=== PATIENT | female | born 1955 | race Caucasian/White ===

== ENCOUNTER 2017-12-26 19:30 | Inpatient (IN) ==
[2017-12-26 20:13] LABS: Baso # (Auto) 0.1 th/mm3 (0.0-0.2); Eos # (Auto) 0.1 th/mm3 (0.0-0.4); Eos % (Auto) 1.3 % (0.0-4.0); Hematocrit 41.3 % (35.0-46.0); Lymph # (Auto) 2.4 th/mm3 (1.0-4.8); Lymph % (Auto) 24.8 % (9.0-44.0); Mean Corpuscular HGB Conc 33.8 % (32.0-36.0); Mean Corpuscular Hemoglobin 30.3 pg (27.0-34.0); Mean Corpuscular Volume 89.7 fL (80.0-100.0); Mean Platelet Volume 8.1 fL (7.0-11.0); Mono # (Auto) 1.1 th/mm3 (0.0-0.9); Mono % (Auto) 11.5 % (0.0-8.0); Neut # (Auto) 5.9 th/mm3 (1.8-7.7); Neut % (Auto) 61.4 % (16.0-70.0); Platelet Count 253 th/mm3 (150-450); White Blood Count 9.5 th/mm3 (4.0-11.0)
[2017-12-26 20:26] LABS: Albumin 3.5 g/dL (3.4-5.0); Anion Gap 12 meq/L (5-15); Aspartate Aminotransferase 22 U/L (15-37); Blood Urea Nitrogen 12 mg/dL (7-18); Calcium 8.8 mg/dL (8.5-10.1); Carbon Dioxide 21.8 meq/L (21.0-32.0); Chloride 105 meq/L (98-107); Glomerular Filtration Rate 65 mL/min (>89); Glucose,Random 112 mg/dL (74-106); Potassium 3.5 meq/L (3.5-5.1); Sodium 139 meq/L (136-145)
[2017-12-26 20:27] LABS: Alanine Aminotransferase 39 U/L (10-53)
[2017-12-26 20:31] LABS: Alkaline Phosphatase 81 U/L (45-117)
--- NOTE | 2017-12-26 20:40 | XR ---
EXAM DATE: 12/26/2017 7:56 PM EDT AGE/SEX: 62 years / Female INDICATIONS: Shortness of breath. CLINICAL DATA: This is the patient's initial encounter. Patient reports that signs and symptoms have been present for 1 day and indicates a pain score of 0/10. MEDICAL/SURGICAL HISTORY: Chronic obstructive pulmonary disease. None. COMPARISON: . FINDINGS: A single AP view of the chest demonstrates the lungs to be symmetrically aerated without evidence of mass, infiltrate or effusion. Minimal basilar atelectasis. The cardiomediastinal contours are unremar kable. Osseous structures are intact. CONCLUSION: Minimal basilar atelectasis. No effusion or pneumothorax. Electronically signed by: Arden Tapia MD 12/26/2017 8:39 PM EDT
--- NOTE | 2017-12-26 20:46 | ED ---
HPI General Chief Complaint: Shortness of Breath/Dyspnea Stated Complaint: SOB/COPD Time Seen by Provider: 12/26/17 19:42 Source: patient and family (Twin sister ) Mode of arrival: ambulatory Limitations: no limitations History of Present Illness 62-year-old female came to the emergency room with her twin sister and her with history of shortness of breath. Initially it was extremely difficult to get any history from the patient. She appeared to be anxious, moderate distress and breathing heavy. Her sister was giving most of the history. There was a lot of anxiety in the room and difficult to get a focused history. I went back after half an hour to talk to the patient and at this time she seemed more calm and told me that she has been having progressive worsening of breathing for past 6 weeks. She is from [facility] and came here 1 week ago. Back home she had seen her primary care physician who had addressed her concern regarding shortness of breath and given her inhaler as well as steroids. Patient says the inhalers made her breathing condition worse. The steroids did seem to help which was a 5-day course of prednisone. Once the steroid was stopped her symptoms started back again. She had a CAT scan of her chest done without contrast, chest x-ray which were all within normal limits. Patient used to be a smoker and quit 10 months ago. She denies of any chest pain, syncopal episode, fever or cough. Upon arrival patient had oxygen saturation of 93-94% on room air. The sister says that she has a pulse ox machine at home and on occasions her oxygen saturation would go down to the mid to high 80s. Patient and her sister seem extremely concerned about this at this point. To them it seems like her symptoms worsen when she is up and walking. Complaint: Reports shortness of breath Onset (ago): week(s) Severity: severe Related Data Home Medications Medication Instructions Recorded Confirmed atorvastatin 20 mg PO DAILY 12/26/17 12/26/17 bupropion HCl [Wellbutrin SR] 100 mg PO DAILY 12/26/17 12/26/17 levothyroxine 50 mcg PO DAILY 12/26/17 12/26/17 sertraline [Zoloft] 100 mg PO DAILY 12/26/17 12/26/17 Previous Rx's Medication Instructions Recorded azithromycin 250 mg PO DAILY #2 tab 12/27/17 budesonide-formoterol [Symbicort] 2 puff INH BID #1 g 12/27/17 lorazepam 0.5 mg PO Q8H #10 tab 12/30/17 prednisone [Deltasone] 20 mg PO BID #10 tab 12/30/17 Allergies Allergy/AdvReac Type Severity Reaction Status Date / Time No Known Allergies Allergy Unverified 12/26/17 19:56 Review of Systems ROS: all other systems reviewed are negative Respiratory Reports dyspnea [facility] Medical History Medical History COPD (chronic obstructive pulmonary disease) (Acute) Depression (Acute) H/O: hysterectomy (Acute) High cholesterol (Acute) Hypothyroid (Acute) Social History Social History Substance History: No History of Abuse Second Hand Smoke Exposure: No Smoking Status: Former smoker Tobacco Type: Cigarettes How Often Do You Have a Drink Containing Alcohol: Monthly or less Recent Travel in [facility] within the Last 8 Weeks: No Recent Out of Country Travel within the Last 8 Weeks: No Immunization History Tetanus Immunization: <5 Years Tetanus Immunization Year if Known: 2017 Exam Narrative Exam Narrative: GENERAL: Awake, alert, extremely anxious, obese SKIN: Focused skin assessment warm/dry. HEAD: Atraumatic. Normocephalic. EYES: Pupils equal and round. No scleral icterus. No injection or drainage. ENT: No nasal bleeding or discharge. Mucous membranes pink and moist. NECK: Trachea midline. No JVD. CARDIOVASCULAR: Regular rate and rhythm. No murmur appreciated. RESPIRATORY: No accessory muscle use. Clear to auscultation. Breath sounds equal bilaterally. Hyperventilation GASTROINTESTINAL: Abdomen soft, non-tender, nondistended. Hepatic and splenic margins not palpable. MUSCULOSKELETAL: No obvious deformities. No clubbing. No cyanosis. No edema. NEUROLOGICAL: Awake and alert. No obvious cranial nerve deficits. Motor grossly within normal limits. Normal speech. PSYCHIATRIC: Appropriate mood and affect; insight and judgment normal. Course Initial Documented Vital Signs Pulse Rate 101 H 12/26/17 19:33 Respiratory Rate 28 H 12/26/17 19:33 Blood Pressure 136/73 12/26/17 19:33 Pulse Oximetry 95 12/26/17 19:33 Last Documented Vital Signs Temperature 98.0 F 12/30/17 12:00 Pulse Rate 85 12/30/17 12:00 Respiratory Rate 18 12/30/17 12:00 Blood Pressure 111/59 L 12/30/17 12:00 Pulse Oximetry 91 L 12/30/17 12:00 Critical Care Time Critical Care Time: Yes Total Critical Care Time: 30 Attestation: Aggregate critical care time was 30 minutes. Time to perform other separately billable procedures was not included in the critical care time. My time did not include minutes spent treating any other patients simultaneously or on activities that did not directly contribute to the patient's treatment. The services I provided to this patient were to treat and/or prevent clinically significant deterioration that could result in: Respiratory distress, hypoxia I provided critical care services requiring my management, as noted below: Chart data review, documentation time, medication orders and management, vital sign assessments/reviewing monitor data, ordering and reviewing lab tests, ordering and interpreting/reviewing x-rays and diagnostic studies, care of the patient and discussion of the patient with the admitting physicians. Medical Decision Making MDM Narrative Medical decision making narrative: 9:24 PM I was told by the nurse earlier that patient went up to go to the bathroom and when she came back she was short of breath again and her pulse ox read 88% on room air. I ordered for a blood gas which was done on 2 L of oxygen via nasal cannula which confirms this result. I have ordered albuterol nebulizer and a DuoNeb for this patient. Blood test results otherwise are within normal limit. I have ordered a CT pulmonary angiogram to rule out PE given the hypoxia. 11:[address] pulmonary angiogram report just came back and shows pulmonary fibrosis but no PE. Patient says that when she had the CT scan done 4 weeks ago she was told that it was normal. The fibrosis would explain the crackles heard as well as her hypoxia and dyspnea on exertion. I explained to the patient that at this point I am not sure what is causing her fibrosis. Ambulatory oxygen saturation was done on room air and patient became tachypneic and hypoxic. Oxygen saturation was down to 87%. I have ordered IV Solu-Medrol as well as IV Zithromax for the patient. Blood culture has been ordered. I explained to her that with hypoxia to this extent it would be unsafe for her to be discharged. Patient understands. Awaiting for the hospitalist to call back. Medical Screen Exam Complete: Yes Emergency Medical Condition: Yes Lab Data Result diagrams: 12/27/17 05:53 12/28/17 08:15 Lab Results 12/26/17 12/26/17 12/26/17 Range/Units 20:00 20:00 20:00 WBC 9.5 (4.0-11.0) th/mm3 RBC 4.60 (4.00-5.30) mil/mm3 Hgb 14.0 (11.6-15.3) gm/dL Hct 41.3 (35.0-46.0) % MCV 89.7 (80.0-100.0) fL MCH 30.3 (27.0-34.0) pg MCHC 33.8 (32.0-36.0) % RDW 13.0 (11.6-17.2) % Plt Count 253 (150-450) th/mm3 MPV 8.1 (7.0-11.0) fL Neut % (Auto) 61.4 (16.0-70.0) % Lymph % (Auto) 24.8 (9.0-44.0) % Bullitt % (Auto) 11.5 H (0.0-8.0) % Eos % (Auto) 1.3 (0.0-4.0) % Baso % (Auto) 1.0 (0.0-2.0) % Neut # (Auto) 5.9 (1.8-7.7) th/mm3 Lymph # (Auto) 2.4 (1.0-4.8) th/mm3 Bullitt # (Auto) 1.1 H (0.0-0.9) th/mm3 Eos # (Auto) 0.1 (0.0-0.4) th/mm3 Baso # (Auto) 0.1 (0.0-0.2) th/mm3 WBC Differential . Differential Comment Auto diff final D-Dimer Quant (PE/DVT) 0.46 (0.00-0.50) mg/L FEU Puncture Site Patient Temperature O2 Saturation (90-100) % ABG pH (7.380-7.420) ABG pCO2 (38-42) mmHg ABG pO2 (61-120) mmHg ABG HCO3 (22-26) mmol/L ABG O2 Content (12.0-20.0) Vol % ABG Base Excess (-2-2) mmol/L ABG Methemoglobin (0-2) % Alberto Test Hemoglobin (12.0-16.0) G/DL Carboxyhemoglobin (0-4) % O2 Delivery Device Liter Flow L/M Critical Value Sodium 139 (136-145) meq/L Potassium 3.5 (3.5-5.1) meq/L Chloride 105 (98-107) meq/L Carbon Dioxide 21.8 (21.0-32.0) meq/L Anion Gap 12 (5-15) meq/L BUN 12 (7-18) mg/dL Creatinine 0.89 (0.50-1.00) mg/dL Estimated GFR 65 L (>89) mL/min Random Glucose 112 H (74-106) mg/dL Calcium 8.8 (8.5-10.1) mg/dL Magnesium (1.5-2.5) mg/dL Total Bilirubin 0.2 (0.2-1.0) mg/dL AST 22 (15-37) U/L ALT 39 (10-53) U/L Alkaline Phosphatase 81 (45-117) U/L Troponin I Less than 0.02 L (0.02-0.05) ng/mL B-Natriuretic Peptide (0-100) pg/mL Total Protein 8.0 (6.4-8.2) g/dL Albumin 3.5 (3.4-5.0) g/dL 12/26/17 12/26/17 12/26/17 Range/Units 20:00 20:00 20:38 WBC (4.0-11.0) th/mm3 RBC (4.00-5.30) mil/mm3 Hgb (11.6-15.3) gm/dL Hct (35.0-46.0) % MCV (80.0-100.0) fL MCH (27.0-34.0) pg MCHC (32.0-36.0) % RDW (11.6-17.2) % Plt Count (150-450) th/mm3 MPV (7.0-11.0) fL Neut % (Auto) (16.0-70.0) % Lymph % (Auto) (9.0-44.0) % Bullitt % (Auto) (0.0-8.0) % Eos % (Auto) (0.0-4.0) % Baso % (Auto) (0.0-2.0) % Neut # (Auto) (1.8-7.7) th/mm3 Lymph # (Auto) (1.0-4.8) th/mm3 Bullitt # (Auto) (0.0-0.9) th/mm3 Eos # (Auto) (0.0-0.4) th/mm3 Baso # (Auto) (0.0-0.2) th/mm3 WBC Differential Differential Comment D-Dimer Quant (PE/DVT) (0.00-0.50) mg/L FEU Puncture Site Right radial Patient Temperature 98.6 O2 Saturation 89 L* (90-100) % ABG pH 7.41 (7.380-7.420) ABG pCO2 36 L (38-42) mmHg ABG pO2 64 (61-120) mmHg ABG HCO3 23 (22-26) mmol/L ABG O2 Content 16.7 (12.0-20.0) Vol % ABG Base Excess -1.3 (-2-2) mmol/L ABG Methemoglobin 0.7 (0-2) % Alberto Test Present Hemoglobin 13.4 (12.0-16.0) G/DL Carboxyhemoglobin 1.3 (0-4) % O2 Delivery Device Nasal cannula Liter Flow 2.00 L/M Critical Value Yes Sodium (136-145) meq/L Potassium (3.5-5.1) meq/L Chloride (98-107) meq/L Carbon Dioxide (21.0-32.0) meq/L Anion Gap (5-15) meq/L BUN (7-18) mg/dL Creatinine (0.50-1.00) mg/dL Estimated GFR (>89) mL/min Random Glucose (74-106) mg/dL Calcium (8.5-10.1) mg/dL Magnesium 2.1 (1.5-2.5) mg/dL Total Bilirubin (0.2-1.0) mg/dL AST (15-37) U/L ALT (10-53) U/L Alkaline Phosphatase (45-117) U/L Troponin I (0.02-0.05) ng/mL B-Natriuretic Peptide 9 (0-100) pg/mL Total Protein (6.4-8.2) g/dL Albumin (3.4-5.0) g/dL 12/27/17 12/27/17 12/28/17 Range/Units 05:53 05:53 08:15 WBC 6.1 (4.0-11.0) th/mm3 RBC 4.58 (4.00-5.30) mil/mm3 Hgb 13.8 (11.6-15.3) gm/dL Hct 41.4 (35.0-46.0) % MCV 90.4 (80.0-100.0) fL MCH 30.0 (27.0-34.0) pg MCHC 33.2 (32.0-36.0) % RDW 12.7 (11.6-17.2) % Plt Count 228 (150-450) th/mm3 MPV 8.1 (7.0-11.0) fL Neut % (Auto) 88.0 H (16.0-70.0) % Lymph % (Auto) 10.2 (9.0-44.0) % Bullitt % (Auto) 1.2 (0.0-8.0) % Eos % (Auto) 0.0 (0.0-4.0) % Baso % (Auto) 0.6 (0.0-2.0) % Neut # (Auto) 5.3 (1.8-7.7) th/mm3 Lymph # (Auto) 0.6 L (1.0-4.8) th/mm3 Bullitt # (Auto) 0.1 (0.0-0.9) th/mm3 Eos # (Auto) 0.0 (0.0-0.4) th/mm3 Baso # (Auto) 0.0 (0.0-0.2) th/mm3 WBC Differential . Differential Comment Auto diff final D-Dimer Quant (PE/DVT) (0.00-0.50) mg/L FEU Puncture Site Patient Temperature O2 Saturation (90-100) % ABG pH (7.380-7.420) ABG pCO2 (38-42) mmHg ABG pO2 (61-120) mmHg ABG HCO3 (22-26) mmol/L ABG O2 Content (12.0-20.0) Vol % ABG Base Excess (-2-2) mmol/L ABG Methemoglobin (0-2) % Alberto Test Hemoglobin (12.0-16.0) G/DL Carboxyhemoglobin (0-4) % O2 Delivery Device Liter Flow L/M Critical Value Sodium 140 142 (136-145) meq/L Potassium 4.2 4.2 (3.5-5.1) meq/L Chloride 107 108 H (98-107) meq/L Carbon Dioxide 23.6 24.4 (21.0-32.0) meq/L Anion Gap 9 10 (5-15) meq/L BUN 12 18 (7-18) mg/dL Creatinine 1.06 H 0.88 (0.50-1.00) mg/dL Estimated GFR 53 L 66 L (>89) mL/min Random Glucose 175 H 119 H (74-106) mg/dL Calcium 9.0 9.1 (8.5-10.1) mg/dL Magnesium 2.4 (1.5-2.5) mg/dL Total Bilirubin 0.2 (0.2-1.0) mg/dL AST 21 (15-37) U/L ALT 39 (10-53) U/L Alkaline Phosphatase 85 (45-117) U/L Troponin I (0.02-0.05) ng/mL B-Natriuretic Peptide (0-100) pg/mL Total Protein 7.9 (6.4-8.2) g/dL Albumin 3.5 (3.4-5.0) g/dL Imaging Data Radiologist's impression: Chest X-Ray 12/26/17 19:56 CONCLUSION: Minimal basilar atelectasis. No effusion or pneumothorax. Chest CTA 12/26/17 20:55 CONCLUSION: 1. Basilar and peripheral predominant pulmonary fibrosis with honeycombing and reticular abnormality in a pattern characteristic of usual interstitial pneumonitis. 2. Negative for pulmonary embolus. ECG Data Interpretation: Twelve-lead EKG was reviewed by me. Normal sinus rhythm, normal axis, nonspecific ST-T wave changes. Heart rate of 95 bpm. Discharge Plan Discharge Disposition Patient Disposition: 30 Still Patient Discharge Condition Condition: Fair Discharge Order Discharge Orders: AMA Discharge (Routine); Ordered 12/30/17 Ordered By: Shahabuddi Ahmed Discharge Details Anticipated Discharge Date: 12/30/17 Physicians Team ED Provider: Sienna Gorman Primary Care Provider: UNKNOWN, Attending Provider: Sigrid Peres Other Providers: Brielle Hannah Status ED Status: Left Department Discharge Information Discharge Date/Time: 12/27/17 00:15
[2017-12-26 20:48] LABS: ABG Base Excess -1.3 mmol/L (-2-2); ABG PCO2 36 mmHg (38-42); ABG PO2 64 mmHg (61-120)
--- NOTE | 2017-12-26 22:26 | CT ---
EXAM DATE: 12/26/2017 9:11 PM EDT AGE/SEX: 62 years / Female INDICATIONS: Shortness of breath. CLINICAL DATA: This is the patient's initial encounter. Patient reports that signs and symptoms have been present for 1 week and indicates a pain score of 0/10. MEDICAL/SURGICAL HISTORY: Chronic obstructive pulmonary disease. Hysterectomy. RADIATION DOSE: 21.57 CTDI (mGy) COMPARISON: No prior exams available for comparison. TECHNIQUE: Volumetric scanning was performed using a multi-row detector CT scanner during bolus infu renae of 70 ml Omnipaque 350 (iohexol) nonionic water-soluble contrast as a single exam dose. The augustine a was post processed with a variety of visualization algorithms including full volume maximum intensi ty projection and sliding thin slab reformation. Using automated exposure control and adjustment of the mA and/or kV according to patient size, radiation dose was kept as low as reasonably achievable t o obtain optimal diagnostic quality images. DICOM format image data is available electronically for review and comparison. FINDINGS: No filling defects to suggest pulmonary embolic disease. There is mild emphysema. There is bilateral mostly basilar and peripheral fibrosis with some honeycombing and traction bronchiectasis characteris tic of a usual interstitial pneumonitis pattern. There is some scattered groundglass opacity. Mildly enlarged mediastinal lymph nodes are present. No acute findings in the upper abdomen. Previous cholecystectomy. CONCLUSION: 1. Basilar and peripheral predominant pulmonary fibrosis with honeycombing and reticular abnormality in a pattern characteristic of usual interstitial pneumonitis. 2. Negative for pulmonary embolus. Electronically signed by: Arden Tapia MD 12/26/2017 10:24 PM EDT
[2017-12-26] MEDS ORDERED: Acetaminophen 325 MG Tablet PO ONE (22:49)
[2017-12-26] MEDS ORDERED: MethylPREDNISolone Sod Succinate Inj 125 MG/2 ML Vial IV.PUSH ONE (23:00)
[2017-12-26] MEDS ORDERED: Azithromycin Inj 500 MG in Sodium Chlor 0.9% Inj 250 ML IV.SIG ONE (23:00)
[2017-12-26] MEDS ORDERED: Bisacodyl 10 MG Supp RECTAL PRN (23:31)
--- NOTE | 2017-12-26 23:33 | P.HPIM ---
History of Present Illness Primary Care Physician: UNKNOWN History of Present Illness: This is a 62-year-old female with a PMH of Anxiety, Depression, Hypothyroidism, Hyperlipidemia and COPD who presented to the ER with significant SOB. Pt here visiting from [place], [facility] she quit smoking approx 10 months ago and was doing fine until few weeks ago when she began to have significant SOB, especially w/ exertion. Was seen by PCP back home, started on MDI and Steroids w/ some transient improvement. States she had upcoming appt w/ Professor Of Social Work when she returns home. Had CT Chest which patient reports was normal. States she has been in [facility] for 1wk and has had worsening symptoms since then. Denies fever or chills. +sore throat, non-productive cough and headache. On arrival, BP 136/73, HR 101, O2 sat 95% on RA. While in the ER, patient had episode of hypoxia w/ O2 sat 87% on RA, significant SOB w/ ambulation. S/p Solu -Medrol and DuoNeb. CXR w/ no acute findings. CTA Chest w/ pulmonary fibrosis with honeycombing and reticular abnormality characteristic of interstitial pneumonitis, negative for PE. - Diagnosis (1) COPD (chronic obstructive pulmonary disease) (2) Hypoxia (3) Anxiety Inpatient Certification: I certify that the inpatient services were ordered in accordance with Medicare regulations governing the order. This includes certification that hospital inpatient services are reasonable and necessary and in the case of services not specified as inpatient-only under 42 CFR 419.22(n), that they are appropriately provided as inpatient services in accordance to with the 2-midnight benchmark under 43 CFR 412.3(e) Estimated Total Length of Stay (Days): 2 Plans for Post Hospital Care: Not yet determined Review of Systems PAST FAMILY HISTORY: Reviewed. No h/o DM or CAD All other systems reviewed negative except as stated in HPI PMFSH - History History Provided By: Patient, Family Member - Medical History Medical History: Medical History (Last Reviewed 12/26/17 @ 21:24 by Sienna Gorman MD) COPD (chronic obstructive pulmonary disease) Depression H/O: hysterectomy High cholesterol Hypothyroid - Tobacco History Tobacco Use In Past 30 Days: No Smoking Status: Former smoker - Alcohol History How Often Do You Have a Drink Containing Alcohol: Monthly or less - Substance Use History Substance History: No History of Abuse - Travel History Recent Travel in the [place] Within the Last 8 Weeks: No Recent Travel Out of the Country Within the Last 8 Weeks: No - Immunization History Tetanus Immunization: <5 Years Tetanus Immunization Year if Known: 2016 Medications and Allergies Active Medications: Active Medications Azithromycin 500 mg/ Sodium (Chloride) 250 mls @ 250 mls/hr IV.SIG ONCE ONE Stop: 12/26/17 23:59 Last Admin: 12/26/17 23:17 Dose: 250 mls/hr Allergies Allergy/AdvReac Type Severity Reaction Status Date / Time No Known Allergies Allergy Unverified 12/26/17 19:56 Home Medications Medication Instructions Recorded Confirmed Type atorvastatin 20 mg PO DAILY 12/26/17 12/26/17 History bupropion HCl [Wellbutrin SR] 100 mg PO DAILY 12/26/17 12/26/17 History levothyroxine 50 mcg PO DAILY 12/26/17 12/26/17 History sertraline [Zoloft] 100 mg PO DAILY 12/26/17 12/26/17 History Exam Vital signs: Vital Signs 12/26/17 19:33 12/26/17 19:50 12/26/17 19:59 Pulse Rate 101 H 85 84 Respiratory Rate 28 H 24 Blood Pressure 136/73 159/71 H Pulse Oximetry 95 96 96 12/26/17 20:30 12/26/17 20:31 12/26/17 20:56 Pulse Rate 84 Respiratory Rate 24 24 Blood Pressure Pulse Oximetry 88 L 94 L 12/26/17 21:00 12/26/17 22:00 12/26/17 22:34 Pulse Rate 84 91 H 89 Respiratory Rate 24 16 16 Blood Pressure 136/64 93/54 L 105/65 Pulse Oximetry 2 L 95 12/26/17 22:57 12/26/17 22:58 12/26/17 23:00 Pulse Rate 79 Respiratory Rate 26 H 22 Blood Pressure 110/67 Pulse Oximetry 87 L 97 96 Intake & Output 12/26/17 12/26/17 12/27/17 06:59 18:59 06:59 Weight 90.718 kg Narrative: PE: GENERAL: Middle-aged white female in no acute distress, however anxious, fidgety SKIN: Focused skin assessment warm and dry. HEENT: PERRLA, EOMI. No scleral icterus or conjunctival pallor. No lid lag or facial droop. CARDIOVASCULAR: Regular rate and rhythm. No obvious murmurs to auscultation. No chest tenderness to palpation. RESPIRATORY: No obvious rhonchi, occasional wheezing. Clear to auscultation. Breath sounds equal bilaterally. GASTROINTESTINAL: Abdomen soft, non-tender, nondistended. BS normal. MUSCULOSKELETAL: Extremities without clubbing, cyanosis, or edema. No obvious deformities. NEUROLOGICAL: Awake, alert and oriented x4. No focal neurologic deficits. Moving both upper and lower extremities spontaneously. PSYCHIATRIC: Appropriate mood and affect. Insight and judgment normal. Results - Labs CBC & Chem 7: 12/26/17 20:00 12/26/17 20:00 Labs: Short CBC 12/26/17 Range/Units 20:00 WBC 9.5 (4.0-11.0) th/mm3 Hgb 14.0 (11.6-15.3) gm/dL Hct 41.3 (35.0-46.0) % Plt Count 253 (150-450) th/mm3 BMP 12/26/17 20:00 Sodium 139 Potassium 3.5 Chloride 105 Carbon Dioxide 21.8 BUN 12 Creatinine 0.89 Calcium 8.8 Cardiac Enzymes 12/26/17 Range/Units 20:00 Troponin I Less than 0.02 L (0.02-0.05) ng/mL Liver Function 12/26/17 Range/Units 20:00 Total Bilirubin 0.2 (0.2-1.0) mg/dL AST 22 (15-37) U/L ALT 39 (10-53) U/L Alkaline Phosphatase 81 (45-117) U/L Albumin 3.5 (3.4-5.0) g/dL - Imaging Impressions Chest X-Ray 12/26/17 19:56 CONCLUSION: Minimal basilar atelectasis. No effusion or pneumothorax. Chest CTA 12/26/17 20:55 CONCLUSION: 1. Basilar and peripheral predominant pulmonary fibrosis with honeycombing and reticular abnormality in a pattern characteristic of usual interstitial pneumonitis. 2. Negative for pulmonary embolus. Caprini VTE Risk Assessment Caprini VTE Risk Assessment: No/Low Risk (score <= 1) Caprini Risk Assessment Model: Point Value = 1 Point Value = 2 Point Value = 3 Point Value = 5 Age 41-60 Minor surgery BMI > 25 kg/m2 Swollen legs Varicose veins or History of unexplained or recurrent spontaneous Oral contraceptives or hormone replacement Sepsis (< 1 month) Serious lung disease, including pneumonia (< 1 month) Abnormal pulmonary function Acute myocardial infarction Congestive heart failure (< 1 month) History of inflammatory bowel disease Medical patient at bed rest Age 61-74 Arthroscopic surgery Major open surgery (> 45 min) Laparoscopic surgery (> 45 min) Malignancy Confined to bed (> 72 hours) Immobilizing plaster cast Central venous access Age >= 75 History of VTE Family history of VTE Factor V Leiden Prothrombin [id number] Lupus anticoagulant Anticardiolipin antibodies Elevated serum homocysteine Heparin-induced thrombocytopenia Other congenital or acquired thrombophilia Stroke (< 1 month) Elective arthroplasty Hip, pelvis, or leg fracture Acute spinal cord injury (< 1 month) Prophylaxis Regimen: Total Risk Factor Score Risk Level Prophylaxis Regimen 0-1 Low Early ambulation 2 Moderate Order ONE of the following: *Sequential Compression Device (SCD) *Heparin 5000 units SQ BID 3-4 Higher Order ONE of the following medications: *Heparin 5000 units SQ TID *Enoxaparin/Lovenox 40 mg SQ daily (WT < 150 kg, CrCl > 30 mL/min) *Enoxaparin/Lovenox 30 mg SQ daily (WT < 150 kg, CrCl > 10-29 mL/min) *Enoxaparin/Lovenox 30 mg SQ BID (WT < 150 kg, CrCl > 30 mL/min) AND/OR *Sequential Compression Device (SCD) 5 or more Highest Order ONE of the following medications: *Heparin 5000 units SQ TID (Preferred with Epidurals) *Enoxaparin/Lovenox 40 mg SQ daily (WT < 150 kg, CrCl > 30 mL/min) *Enoxaparin/Lovenox 30 mg SQ daily (WT < 150 kg, CrCl > 10-29 mL/min) *Enoxaparin/Lovenox 30 mg SQ BID (WT < 150 kg, CrCl > 30 mL/min) AND *Sequential Compression Device (SCD) Assessment and Plan - Assessment (1) COPD (chronic obstructive pulmonary disease) Code(s): J44.9 - Chronic obstructive pulmonary disease, unspecified Status: Acute (2) Hypoxia Code(s): R09.02 - Hypoxemia Status: Acute (3) Anxiety Code(s): F41.9 - Anxiety disorder, unspecified Status: Acute - Plan A/P: 1. COPD: Chronic Respiratory Failure w/ Acute Exacerbation. Severe. Solu- Medrol, DuoNeb q4h and q2h prn, Symbicort, Mucinex. CXR w/ no acute findings, CTA Chest w/ interstitial pneumonitis, images reviewed. Symptoms ongoing for several weeks, consult Pulmonology for further recommendations/intervention. 2. Hypoxia: O2 sat 87% on RA, significant dyspnea w/ ambulation. Continue O2 , monitor oximetry, re-assess for Home O2 needs prior to discharge. 3. Anxiety: significant anxiety on exam, Ativan prn as needed. 4. DVT Prophylaxis: SCD/Teds 5. Social work for d/c planning as needed. 6. Case discussed w/ ER physician at length, labs/records/imaging reviewed by me.
[2017-12-27] MEDS ORDERED: Sodium Chloride 0.9% 2 ML Flush PRN IV.FLUSH (00:53)
[2017-12-27] MEDS: MethylPREDNISolone Sod Succinate Inj 40 MG/ML Vial IV.PUSH SCH ×4 (03:31→22:41)
--- NOTE | 2017-12-27 05:22 | P.PN ---
Subjective Interval history: F/U COPD with hypoxia. Improving shortness of breath but still with significant dyspnea on exertion on nasal cannula. Productive cough with brownish phlegm Physical Exam Vital signs: Vital Signs 12/26/17 19:33 12/26/17 19:50 12/26/17 19:59 Temperature Pulse Rate 101 H 85 84 Respiratory Rate 28 H 24 Blood Pressure 136/73 159/71 H Pulse Oximetry 95 96 96 12/26/17 20:30 12/26/17 20:31 12/26/17 20:56 Temperature Pulse Rate 84 Respiratory Rate 24 24 Blood Pressure Pulse Oximetry 88 L 94 L 12/26/17 21:00 12/26/17 22:00 12/26/17 22:34 Temperature Pulse Rate 84 91 H 89 Respiratory Rate 24 16 16 Blood Pressure 136/64 93/54 L 105/65 Pulse Oximetry 2 L 95 12/26/17 22:57 12/26/17 22:58 12/26/17 23:00 Temperature Pulse Rate 79 Respiratory Rate 26 H 22 Blood Pressure 110/67 Pulse Oximetry 87 L 97 96 12/27/17 01:00 12/27/17 01:01 12/27/17 03:42 Temperature 98.1 F Pulse Rate 84 88 Respiratory Rate 15 19 Blood Pressure 100/62 Pulse Oximetry 96 Intake & Output 12/26/17 12/26/17 12/27/17 06:59 18:59 06:59 Intake Total 250 / 250 Balance 250 / 250 Weight 90.7 kg Intake: IV 250 / 250 Azithromycin Inj 500 MG In NS 250 / 250 Inj 250 ML @ 250 mls/hr IV.SIG ONCE ONE Rx#:[id number] Other: Date of Last Bowel Movement 12/26/17 Weight On Admission 90.7 kg Narrative: GENERAL: Middle-aged white female in no acute distress SKIN: Focused skin assessment warm and dry. CARDIOVASCULAR: Regular rate and rhythm. No obvious murmurs to auscultation. No chest tenderness to palpation. RESPIRATORY: No obvious rhonchi, occasional wheezing. Clear to auscultation. Breath sounds equal bilaterally. GASTROINTESTINAL: Abdomen soft, non-tender, nondistended. BS normal. MUSCULOSKELETAL: Extremities without clubbing, cyanosis, or edema. No obvious deformities. NEUROLOGICAL: Awake, alert and oriented x4. No focal neurologic deficits. Moving both upper and lower extremities spontaneously. Results - Labs CBC & Chem 7: 12/27/17 05:53 12/27/17 05:53 Laboratory Results - last 24 hr 12/26/17 12/26/17 12/26/17 20:00 20:00 20:00 WBC 9.5 RBC 4.60 Hgb 14.0 Hct 41.3 MCV 89.7 MCH 30.3 MCHC 33.8 RDW 13.0 Plt Count 253 MPV 8.1 Neut % (Auto) 61.4 Lymph % (Auto) 24.8 [place] % (Auto) 11.5 H Eos % (Auto) 1.3 Baso % (Auto) 1.0 Neut # (Auto) 5.9 Lymph # (Auto) 2.4 [place] # (Auto) 1.1 H Eos # (Auto) 0.1 Baso # (Auto) 0.1 WBC Differential . Differential Comment Auto diff final D-Dimer Quant (PE/DVT) 0.46 Puncture Site Patient Temperature O2 Saturation ABG pH ABG pCO2 ABG pO2 ABG HCO3 ABG O2 Content ABG Base Excess ABG Methemoglobin Alberto Test Hemoglobin Carboxyhemoglobin O2 Delivery Device Liter Flow Critical Value Sodium 139 Potassium 3.5 Chloride 105 Carbon Dioxide 21.8 Anion Gap 12 BUN 12 Creatinine 0.89 Estimated GFR 65 L Random Glucose 112 H Calcium 8.8 Magnesium Total Bilirubin 0.2 AST 22 ALT 39 Alkaline Phosphatase 81 Troponin I Less than 0.02 L B-Natriuretic Peptide Total Protein 8.0 Albumin 3.5 12/26/17 12/26/17 12/26/17 20:00 20:00 20:38 WBC RBC Hgb Hct MCV MCH MCHC RDW Plt Count MPV Neut % (Auto) Lymph % (Auto) [place] % (Auto) Eos % (Auto) Baso % (Auto) Neut # (Auto) Lymph # (Auto) [place] # (Auto) Eos # (Auto) Baso # (Auto) WBC Differential Differential Comment D-Dimer Quant (PE/DVT) Puncture Site Right radial Patient Temperature 98.6 O2 Saturation 89 L* ABG pH 7.41 ABG pCO2 36 L ABG pO2 64 ABG HCO3 23 ABG O2 Content 16.7 ABG Base Excess -1.3 ABG Methemoglobin 0.7 Alberto Test Present Hemoglobin 13.4 Carboxyhemoglobin 1.3 O2 Delivery Device Nasal cannula Liter Flow 2.00 Critical Value Yes Sodium Potassium Chloride Carbon Dioxide Anion Gap BUN Creatinine Estimated GFR Random Glucose Calcium Magnesium 2.1 Total Bilirubin AST ALT Alkaline Phosphatase Troponin I B-Natriuretic Peptide 9 Total Protein Albumin - Imaging Impressions Chest X-Ray 12/26/17 19:56 CONCLUSION: Minimal basilar atelectasis. No effusion or pneumothorax. Chest CTA 12/26/17 20:55 CONCLUSION: 1. Basilar and peripheral predominant pulmonary fibrosis with honeycombing and reticular abnormality in a pattern characteristic of usual interstitial pneumonitis. 2. Negative for pulmonary embolus. - Procedures none Assessment and Plan - Assessment (1) COPD (chronic obstructive pulmonary disease) Code(s): J44.9 - Chronic obstructive pulmonary disease, unspecified Status: Acute (2) Hypoxia Code(s): R09.02 - Hypoxemia Status: Acute (3) Anxiety Code(s): F41.9 - Anxiety disorder, unspecified Status: Acute - Plan 1. COPD w/ acute Exacerbation. Severe. Solu-Medrol, DuoNeb q4h and q2h prn, Symbicort, Mucinex. CXR w/ no acute findings, CTA Chest w/ interstitial pneumonitis, images reviewed. Symptoms ongoing for several weeks, consult Pulmonology for further recommendations/intervention. Add Zithromax 2. Hypoxia: O2 sat 87% on RA, significant dyspnea w/ ambulation. Continue O2 , monitor oximetry, re-assess for Home O2 needs prior to discharge. 3. Anxiety: significant anxiety on exam, Ativan prn as needed. 4. DVT Prophylaxis: SCD/Teds Discharge Planning: Per pulmo. O2 walk test
[2017-12-27 06:30] LABS: Baso % (Auto) 0.6 % (0.0-2.0); Hematocrit 41.4 % (35.0-46.0); Hemoglobin 13.8 gm/dL (11.6-15.3); Lymph # (Auto) 0.6 th/mm3 (1.0-4.8); Lymph % (Auto) 10.2 % (9.0-44.0); Mean Corpuscular HGB Conc 33.2 % (32.0-36.0); Mean Corpuscular Volume 90.4 fL (80.0-100.0); Mean Platelet Volume 8.1 fL (7.0-11.0); Mono # (Auto) 0.1 th/mm3 (0.0-0.9); Mono % (Auto) 1.2 % (0.0-8.0); Neut # (Auto) 5.3 th/mm3 (1.8-7.7); Platelet Count 228 th/mm3 (150-450); Red Blood Count 4.58 mil/mm3 (4.00-5.30); Red Cell Distribution Width 12.7 % (11.6-17.2); White Blood Count 6.1 th/mm3 (4.0-11.0)
[2017-12-27 07:00] LABS: Albumin 3.5 g/dL (3.4-5.0); Anion Gap 9 meq/L (5-15); Aspartate Aminotransferase 21 U/L (15-37); Blood Urea Nitrogen 12 mg/dL (7-18); Carbon Dioxide 23.6 meq/L (21.0-32.0); Chloride 107 meq/L (98-107); Glomerular Filtration Rate 53 mL/min (>89); Glucose,Random 175 mg/dL (74-106); Potassium 4.2 meq/L (3.5-5.1); Sodium 140 meq/L (136-145)
[2017-12-27 07:02] LABS: Alanine Aminotransferase 39 U/L (10-53)
[2017-12-27 07:04] LABS: Alkaline Phosphatase 85 U/L (45-117); Total Protein 7.9 g/dL (6.4-8.2)
[2017-12-27] MEDS: Senna/Docusate Sodium 8.6/50 MG Tablet PO SCH ×2 (08:39→22:41)
[2017-12-27] MEDS: guaiFENesin 600 MG ER Tablet PO SCH ×2 (08:39→22:40)
[2017-12-27] MEDS: Sodium Chloride 0.9% 2 ML Flush BID IV.FLUSH SCH ×2 (08:40→22:42)
[2017-12-27] MEDS: Budesonide-Formoterol 160/4.5 MCG 6 GM Inhaler INH SCH ×2 (09:40→22:42)
[2017-12-27] MEDS: Levothyroxine 50 MCG Tablet PO SCH (11:11)
[2017-12-27] MEDS: buPROPion 100 MG ER 12 HR Tablet PO SCH (11:12)
--- NOTE | 2017-12-27 15:44 | MB ---
cc: Brielle Hannah MD DATE: 12/27/2017 REASON FOR CONSULTATION: COPD in exacerbation. HISTORY OF PRESENT ILLNESS: Ms. Bentley is a 62-year-old female with a known history of COPD, who presents with increasing shortness of breath, cough with expectoration of small amount of whitish sputum. Denies history of fever or chills. No hemoptysis. No TB, no industrial exposure. The patient's oxygen saturation upon presentation is at 87%, presently at 98% on 2 liters oxygen nasal cannula. PAST MEDICAL HISTORY: COPD, hypothyroidism, hyperlipidemia, mood disorder namely anxiety and depression. FAMILY HISTORY: Noncontributory. SOCIAL HISTORY: Long smoking history, stopped 10 months ago. Does not drink any alcohol. No TB, no industrial exposure. FAMILY HISTORY: Noncontributory. REVIEW OF SYSTEMS: A 12-point review of systems as per HPI and past history, otherwise negative. PHYSICAL EXAMINATION: GENERAL: The patient is alert. VITAL SIGNS: Temperature 98.4, respirations 18, blood pressure 110/70, oxygen saturation 96% on 2 liters oxygen nasal cannula. HEENT: Unremarkable. Eyes without icterus. NECK: Without adenopathy, thyroid enlargement; central trachea. CHEST: Few scattered rhonchi bilaterally. CARDIAC: PMI distant. S1, S2 audible. No murmur. No rub. ABDOMEN: Lax, bowel sounds audible. EXTREMITIES: No clubbing, cyanosis or edema. SKIN: Normal. No lymphadenopathy. LABORATORY DATA: White count 9.5, hemoglobin 14, hematocrit 41, platelets 253,000. Sodium 139, potassium 3.5, BUN 12, creatinine 0.8. IMAGIN. Chest x-ray. Mild atelectatic change, essentially normal. 2. CT angiogram without evidence of pulmonary embolism and evidence of fibrotic change chronic bilaterally suggestive of underlying UIP. IMPRESSION: 1. Chronic obstructive pulmonary disease exacerbation. 2. Probable usual interstitial pneumonia. 3. Mood disorder. 4. Respiratory failure. PLAN: 1. Continue oxygen therapy, bronchodilator therapy. 2. The patient lives in [place] and copies of her CT scan should be given to her upon her return to present to her manager surgery. Further evaluation of underlying UIP would be appropriate. We will follow the patient's course along with you and, depending on progress, proceed further. MD Lina Mercado , 03:30 PM , 03:37 PM
--- NOTE | 2017-12-27 16:44 | ECG ---
Date Performed: 12/26/2017 Time Performed: 19:48:20 PTAGE: 62 years EKG: Sinus rhythm POSSIBLE RIGHT VENTRICULAR CONDUCTION DELAY BORDERLINE ECG NO PREVIOUS TRACING DOCTOR: Sandra Almanzar Interpretating Date/Time 12/27/2017 16:41:30
[2017-12-27] MEDS: Azithromycin 250 MG Tablet PO SCH (16:58)
[2017-12-27] MEDS: Acetaminophen 325 MG Tablet PO PRN (16:58)
[2017-12-27] MEDS: Sertraline 100 MG Tablet PO SCH (22:41)
[2017-12-28] MEDS: Levothyroxine 50 MCG Tablet PO SCH (05:19)
[2017-12-28] MEDS: MethylPREDNISolone Sod Succinate Inj 40 MG/ML Vial IV.PUSH SCH ×4 (05:19→21:21)
[2017-12-28] MEDS: Budesonide-Formoterol 160/4.5 MCG 6 GM Inhaler INH SCH ×2 (08:55→21:23)
[2017-12-28] MEDS: Acetaminophen 325 MG Tablet PO PRN (08:55)
[2017-12-28] MEDS: guaiFENesin 600 MG ER Tablet PO SCH ×2 (08:56→21:21)
[2017-12-28] MEDS: Sodium Chloride 0.9% 2 ML Flush BID IV.FLUSH SCH ×2 (08:56→21:23)
[2017-12-28] MEDS: buPROPion 100 MG ER 12 HR Tablet PO SCH (08:56)
[2017-12-28] MEDS: Senna/Docusate Sodium 8.6/50 MG Tablet PO SCH ×2 (08:56→21:21)
[2017-12-28] MEDS: Azithromycin 250 MG Tablet PO SCH (08:56)
[2017-12-28 09:37] LABS: Calcium 9.1 mg/dL (8.5-10.1); Carbon Dioxide 24.4 meq/L (21.0-32.0); Magnesium 2.4 mg/dL (1.5-2.5); Potassium 4.2 meq/L (3.5-5.1)
--- NOTE | 2017-12-28 10:50 | P.PN ---
Subjective Interval history: Patient with COPD and Hypoxia, 12/28: patient with diagnosis of COPD stable in her bedroom continue Oxygen through NC no distress at this time, no expiratory wheezing, robotics specialist following. No nausea , vomit or diarrhea. Physical Exam Vital signs: Vital Signs 12/27/17 12:00 12/27/17 12:35 12/27/17 15:56 Temperature 97.6 F Pulse Rate 93 H 93 H 101 H Respiratory Rate 20 19 20 Blood Pressure 130/70 Pulse Oximetry 92 L 12/27/17 16:00 12/27/17 17:28 12/27/17 20:00 Temperature 98.1 F 97.5 F L Pulse Rate 97 H 102 H Respiratory Rate 18 18 18 Blood Pressure 124/81 Pulse Oximetry 97 94 L 12/27/17 21:07 12/28/17 00:00 12/28/17 04:54 Temperature 97.4 F L 97.6 F Pulse Rate 104 H 95 H 95 H Respiratory Rate 17 18 18 Blood Pressure 127/71 111/67 Pulse Oximetry 97 92 L 92 L 12/28/17 08:00 12/28/17 08:21 Temperature 98.1 F Pulse Rate 85 79 Respiratory Rate 18 22 Blood Pressure 122/80 Pulse Oximetry 96 Intake & Output 12/27/17 12/28/17 12/28/17 18:59 06:59 18:59 Intake Total 740 / 740 960 / 960 Balance 740 / 740 960 / 960 Intake: Oral 740 / 740 960 / 960 Other: # Voids 2 2 Date of Last Bowel Movement 12/26/17 12/26/17 # Bowel Movements 0 0 Narrative: GENERAL: Middle-aged white female in no acute distress SKIN: Focused skin assessment warm and dry. CARDIOVASCULAR: Regular rate and rhythm. No obvious murmurs to auscultation. No chest tenderness to palpation. RESPIRATORY: No obvious rhonchi, No wheezing, no crackles. GASTROINTESTINAL: Abdomen soft, non-tender, nondistended. BS normal. MUSCULOSKELETAL: Extremities without clubbing, cyanosis, or edema. No obvious deformities. NEUROLOGICAL: Awake, alert and oriented x4. No focal neurologic deficits. Results - Labs CBC & Chem 7: 12/27/17 05:53 12/28/17 08:15 Laboratory Results - last 24 hr 12/28/17 08:15 Sodium 142 Potassium 4.2 Chloride 108 H Carbon Dioxide 24.4 Anion Gap 10 BUN 18 Creatinine 0.88 Estimated GFR 66 L Random Glucose 119 H Calcium 9.1 Magnesium 2.4 Microbiology 12/26/17 23:15 Blood - Peripheral Aerobic Blood Culture - Preliminary No growth in 1 day 12/26/17 23:15 Blood - Peripheral Anaerobic Blood Culture - Preliminary No growth in 1 day 12/26/17 23:20 Blood - Peripheral Aerobic Blood Culture - Preliminary No growth in 1 day 12/26/17 23:20 Blood - Peripheral Anaerobic Blood Culture - Preliminary No growth in 1 day - Imaging Chest X-Ray 12/26/17 19:56 CONCLUSION: Minimal basilar atelectasis. No effusion or pneumothorax. Chest CTA 12/26/17 20:55 CONCLUSION: 1. Basilar and peripheral predominant pulmonary fibrosis with honeycombing and reticular abnormality in a pattern characteristic of usual interstitial pneumonitis. 2. Negative for pulmonary embolus. - Procedures none Assessment and Plan - Assessment (1) COPD (chronic obstructive pulmonary disease) Code(s): J44.9 - Chronic obstructive pulmonary disease, unspecified Status: Acute (2) Hypoxia Code(s): R09.02 - Hypoxemia Status: Acute (3) Anxiety Code(s): F41.9 - Anxiety disorder, unspecified Status: Acute - Plan 1. COPD w/ acute Exacerbation. Severe. Continue Solu-Medrol, bronchodilator, Mucolytic incentive spirometry CXR w/ no acute findings, CTA Chest w/ interstitial pneumonitis, added Azithromycin, robotics specialist following. 2. Hypoxia: O2 sat 87% on RA, significant dyspnea w/ ambulation. Continue O2 , monitor oximetry, re-assess for Home O2 needs prior to discharge. 3. Anxiety: significant anxiety on exam, Ativan prn as needed. 4. Obesity strongly recommended diet and exercise. DVT Prophylaxis: SCD/Teds Code Status: Full code. Discussed Condition With: Patient, her twin sister and nurse Miss Murillo. Discharge Planning: Once cleared by environmental monitoring specialist.
[2017-12-28] MEDS: Sertraline 100 MG Tablet PO SCH (21:22)
[2017-12-29] MEDS: MethylPREDNISolone Sod Succinate Inj 40 MG/ML Vial IV.PUSH SCH ×4 (04:54→22:14)
[2017-12-29] MEDS: Levothyroxine 50 MCG Tablet PO SCH (05:02)
[2017-12-29] MEDS: guaiFENesin 600 MG ER Tablet PO SCH ×2 (10:32→20:24)
[2017-12-29] MEDS: buPROPion 100 MG ER 12 HR Tablet PO SCH (10:33)
[2017-12-29] MEDS: Senna/Docusate Sodium 8.6/50 MG Tablet PO SCH ×2 (10:33→20:24)
[2017-12-29] MEDS: Acetaminophen 325 MG Tablet PO PRN ×2 (10:33→22:15)
[2017-12-29] MEDS: Budesonide-Formoterol 160/4.5 MCG 6 GM Inhaler INH SCH ×2 (10:35→20:25)
[2017-12-29] MEDS: Sodium Chloride 0.9% 2 ML Flush BID IV.FLUSH SCH ×2 (10:38→20:27)
[2017-12-29] MEDS: Azithromycin 250 MG Tablet PO SCH (10:39)
--- NOTE | 2017-12-29 11:28 | P.PN ---
Subjective Interval history: Patient with COPD and Hypoxia, 12/28: patient with diagnosis of COPD stable in her bedroom continue Oxygen through NC no distress at this time, no expiratory wheezing, review specialist following. 12/29: Improving her condition, asked by review specialist for PFTs wants to go home, will discharge Home after PFT performed. Physical Exam Vital signs: Vital Signs 12/28/17 11:55 12/28/17 12:00 12/28/17 16:00 Temperature 97.5 F L 98.1 F Pulse Rate 93 H 91 H 96 H Respiratory Rate 22 20 Blood Pressure 124/68 122/72 Pulse Oximetry 95 92 L 12/28/17 18:45 12/28/17 19:10 12/28/17 20:13 Temperature 97.3 F L Pulse Rate 90 69 75 Respiratory Rate 18 18 Blood Pressure 138/86 Pulse Oximetry 95 95 12/28/17 23:07 12/29/17 04:40 12/29/17 08:00 Temperature 97.5 F L 97.5 F L 98.2 F Pulse Rate 59 L 63 70 Respiratory Rate 17 17 17 Blood Pressure 118/64 119/76 147/66 H Pulse Oximetry 93 L 94 L 95 12/29/17 08:50 Temperature Pulse Rate 73 Respiratory Rate 16 Blood Pressure Pulse Oximetry 94 L Intake & Output 12/28/17 12/29/17 12/29/17 18:59 06:59 18:59 Intake Total 960 / 960 480 / 480 Balance 960 / 960 480 / 480 Intake: Oral 960 / 960 480 / 480 Other: # Voids 4 3 # Bowel Movements 0 1 Narrative: GENERAL: Middle-aged white female in no acute distress SKIN: Focused skin assessment warm and dry. CARDIOVASCULAR: Regular rate and rhythm. No obvious murmurs to auscultation. No chest tenderness to palpation. RESPIRATORY: No obvious rhonchi, No wheezing, no crackles. GASTROINTESTINAL: Abdomen soft, non-tender, nondistended. BS normal. MUSCULOSKELETAL: Extremities without clubbing, cyanosis, or edema. No obvious deformities. NEUROLOGICAL: Awake, alert and oriented x4. No focal neurologic deficits. Results - Labs CBC & Chem 7: 12/27/17 05:53 12/28/17 08:15 Microbiology 12/26/17 23:15 Blood - Peripheral Aerobic Blood Culture - Preliminary No growth in 3 days 12/26/17 23:15 Blood - Peripheral Anaerobic Blood Culture - Preliminary No growth in 3 days 12/26/17 23:20 Blood - Peripheral Aerobic Blood Culture - Preliminary No growth in 3 days 12/26/17 23:20 Blood - Peripheral Anaerobic Blood Culture - Preliminary No growth in 3 days - Imaging Chest X-Ray 12/26/17 19:56 CONCLUSION: Minimal basilar atelectasis. No effusion or pneumothorax. Chest CTA 12/26/17 20:55 CONCLUSION: 1. Basilar and peripheral predominant pulmonary fibrosis with honeycombing and reticular abnormality in a pattern characteristic of usual interstitial pneumonitis. 2. Negative for pulmonary embolus. - Procedures none Assessment and Plan - Assessment (1) COPD (chronic obstructive pulmonary disease) Code(s): J44.9 - Chronic obstructive pulmonary disease, unspecified Status: Acute (2) Hypoxia Code(s): R09.02 - Hypoxemia Status: Acute (3) Anxiety Code(s): F41.9 - Anxiety disorder, unspecified Status: Acute - Plan 1. COPD w/ acute Exacerbation. Severe. Continue Solu-Medrol, bronchodilator, Mucolytic incentive spirometry CXR w/ no acute findings, CTA Chest w/ interstitial pneumonitis, added Azithromycin, review specialist following. asked for PFTs and will be discharged after procedure performed. 2. Hypoxia: O2 sat 87% on RA, significant dyspnea w/ ambulation. Continue O2 , monitor oximetry, re-assess for Home O2 needs prior to discharge. 3. Anxiety: significant anxiety on exam, Ativan prn as needed. 4. Obesity strongly recommended diet and exercise. DVT Prophylaxis: SCD/Teds Code Status: Full code. Discussed Condition With: patient and her Sister in the room. Discharge Planning: Expected later today.
--- NOTE | 2017-12-29 15:14 | P.PN ---
Subjective Interval history: alert less sob ambulating Physical Exam Vital signs: Vital Signs 12/28/17 16:00 12/28/17 18:45 12/28/17 19:10 Temperature 98.1 F 97.3 F L Pulse Rate 96 H 90 69 Respiratory Rate 20 18 Blood Pressure 122/72 138/86 Pulse Oximetry 92 L 95 Pulse Oximetry [Resting on Room Air] Pulse Oximetry [Resting with Oxygen] 12/28/17 20:13 12/28/17 23:07 12/29/17 04:40 Temperature 97.5 F L 97.5 F L Pulse Rate 75 59 L 63 Respiratory Rate 18 17 17 Blood Pressure 118/64 119/76 Pulse Oximetry 95 93 L 94 L Pulse Oximetry [Resting on Room Air] Pulse Oximetry [Resting with Oxygen] 12/29/17 08:00 12/29/17 08:50 12/29/17 12:00 Temperature 98.2 F 98.0 F Pulse Rate 70 73 93 H Respiratory Rate 17 16 18 Blood Pressure 147/66 H 103/55 L Pulse Oximetry 95 94 L 95 Pulse Oximetry [Resting on Room Air] Pulse Oximetry [Resting with Oxygen] 12/29/17 14:41 Temperature Pulse Rate Respiratory Rate Blood Pressure Pulse Oximetry Pulse Oximetry [Resting on Room Air] 88 L Pulse Oximetry [Resting with Oxygen] 94 L Intake & Output 12/28/17 12/29/17 12/29/17 18:59 06:59 18:59 Intake Total 960 / 960 480 / 480 Balance 960 / 960 480 / 480 Intake: Oral 960 / 960 480 / 480 Other: # Voids 4 3 # Bowel Movements 0 1 Narrative: GENERAL: Middle-aged white female in no acute distress SKIN: Focused skin assessment warm and dry. CARDIOVASCULAR: Regular rate and rhythm. No obvious murmurs to auscultation. No chest tenderness to palpation. RESPIRATORY: No obvious rhonchi, No wheezing, no crackles. GASTROINTESTINAL: Abdomen soft, non-tender, nondistended. BS normal. MUSCULOSKELETAL: Extremities without clubbing, cyanosis, or edema. No obvious deformities. NEUROLOGICAL: Awake, alert and oriented x4. No focal neurologic deficits. Results - Labs CBC & Chem 7: 12/27/17 05:53 12/28/17 08:15 Microbiology 12/26/17 23:15 Blood - Peripheral Aerobic Blood Culture - Preliminary No growth in 3 days 12/26/17 23:15 Blood - Peripheral Anaerobic Blood Culture - Preliminary No growth in 3 days 12/26/17 23:20 Blood - Peripheral Aerobic Blood Culture - Preliminary No growth in 3 days 12/26/17 23:20 Blood - Peripheral Anaerobic Blood Culture - Preliminary No growth in 3 days - Procedures none Assessment and Plan - Plan RESPIRATORY FAILURE COPD EXACERBATION UIP PLAN O2 NEEDED BRONCHODILATORS STEROIDS HOME AM IF STABLE ON PO STEROIDS/ANTIBX
[2017-12-29] MEDS: Sertraline 100 MG Tablet PO SCH (20:24)
[2017-12-30] MEDS: MethylPREDNISolone Sod Succinate Inj 40 MG/ML Vial IV.PUSH SCH ×2 (04:05→10:51)
[2017-12-30] MEDS: Acetaminophen 325 MG Tablet PO PRN (04:09)
[2017-12-30] MEDS: Levothyroxine 50 MCG Tablet PO SCH (06:12)
[2017-12-30] MEDS: Sodium Chloride 0.9% 2 ML Flush BID IV.FLUSH SCH (09:53)
[2017-12-30] MEDS: Senna/Docusate Sodium 8.6/50 MG Tablet PO SCH (09:54)
[2017-12-30] MEDS: guaiFENesin 600 MG ER Tablet PO SCH (09:54)
[2017-12-30] MEDS: buPROPion 100 MG ER 12 HR Tablet PO SCH (09:54)
[2017-12-30] MEDS: Azithromycin 250 MG Tablet PO SCH (09:54)
[2017-12-30] MEDS: Budesonide-Formoterol 160/4.5 MCG 6 GM Inhaler INH SCH (09:55)
[2017-12-30 11:27] VITALS: PULSE 85
[2017-12-30 12:25] VITALS: BP 111/59; RESP 18; TEMP 98; O2SAT 91
--- NOTE | 2017-12-30 14:57 | P.DS ---
Date of admission: 12/26/17 23:21 Primary care physician: UNKNOWN Brief History from admission: This is a 62-year-old female with a PMH of Anxiety, Depression, Hypothyroidism, Hyperlipidemia and COPD who presented to the ER with significant SOB. Pt here visiting from [place], states she quit smoking approx 10 months ago and was doing fine until few weeks ago when she began to have significant SOB, especially w/ exertion. Was seen by PCP back home, started on MDI and Steroids w/ some transient improvement. States she had upcoming appt w/ [facility] [employer] when she returns home. Had CT Chest which patient reports was normal. States she has been in [facility] for 1wk and has had worsening symptoms since then. Denies fever or chills. +sore throat, non-productive cough and headache. On arrival, BP 136/73, HR 101, O2 sat 95% on RA. While in the ER, patient had episode of hypoxia w/ O2 sat 87% on RA, significant SOB w/ ambulation. S/p Solu -Medrol and DuoNeb. CXR w/ no acute findings. CTA Chest w/ pulmonary fibrosis with honeycombing and reticular abnormality characteristic of interstitial pneumonitis, negative for PE. DS: Medications - Discharge Medications Prescriptions: azithromycin 250 mg PO DAILY #2 tab budesonide-formoterol [Symbicort] 2 puff INH BID #1 g lorazepam 0.5 mg PO Q8H #10 tab prednisone [Deltasone] 20 mg PO BID #10 tab DS: Summary - Time Spent with Patient Total time spent providing and/or coordinating discharge services: - Quality: VTE Deep Vein Thrombosis/Pulmonary Embolism Present on Admission: No Exam Vital signs: Vital Signs 12/29/17 15:57 12/29/17 15:58 12/29/17 16:00 Temperature 98.0 F Pulse Rate 80 88 Respiratory Rate 18 18 Blood Pressure 114/69 Pulse Oximetry 98 96 12/29/17 19:38 12/29/17 20:00 12/29/17 20:22 Temperature 97.7 F Pulse Rate 88 85 86 Respiratory Rate 16 18 Blood Pressure 111/59 L Pulse Oximetry 94 L 94 L 12/29/17 23:25 12/30/17 00:00 12/30/17 03:35 Temperature 98.2 F Pulse Rate 60 65 69 Respiratory Rate 18 Blood Pressure 128/73 Pulse Oximetry 94 L 12/30/17 08:00 12/30/17 09:00 12/30/17 11:27 Temperature 98.3 F Pulse Rate 67 59 L 85 Respiratory Rate 19 12 Blood Pressure 141/79 H Pulse Oximetry 97 12/30/17 12:00 Temperature 98.0 F Pulse Rate 85 Respiratory Rate 18 Blood Pressure 111/59 L Pulse Oximetry 91 L Intake & Output 12/29/17 12/30/17 12/30/17 18:59 06:59 18:59 Intake Total 1000 / 1000 240 / 240 Balance 1000 / 1000 240 / 240 Intake: Oral 1000 / 1000 240 / 240 Other: # Voids 4 3 Date of Last Bowel Movement 12/27/17 12/28/17 # Bowel Movements 0 0 Results Procedures completed during hospitalization: none Labs on day of discharge: Preliminary micro results at discharge 12/26/17 23:15 Aerobic Blood Culture - Preliminary Blood - Peripheral No growth in 4 days Anaerobic Blood Culture - Preliminary No growth in 4 days 12/26/17 23:20 Aerobic Blood Culture - Preliminary Blood - Peripheral No growth in 4 days Anaerobic Blood Culture - Preliminary No growth in 4 days - Impressions ITS Impressions Chest X-Ray 12/26/17 19:56 CONCLUSION: Minimal basilar atelectasis. No effusion or pneumothorax. Chest CTA 12/26/17 20:55 CONCLUSION: 1. Basilar and peripheral predominant pulmonary fibrosis with honeycombing and reticular abnormality in a pattern characteristic of usual interstitial pneumonitis. 2. Negative for pulmonary embolus. Discharge Plan - Discharge Disposition Patient Disposition: 07 Against Medical Advice - Discharge Condition Condition: Fair - Discharge Order Discharge Orders: AMA Discharge (Routine); Ordered 12/30/17 Ordered By: iSgrid Peres - Discharge Details Anticipated Discharge Date: 12/30/17 - Physicians Team Primary Care Provider: UNKNOWN, Attending Provider: Sigrid Peres Other Providers: Brielle Hannah MD
== END 2017-12-30 15:44 | disposition left against medical advice (07) ==
LOC: NEPC 19:30 → NEDA 23:21 → N06 12-27 00:15
PROVIDERS: ADMIT Hospitalist; ATTEND Hospitalist